=== PATIENT | female | born 2005 | race Caucasian/White ===

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

== ENCOUNTER 2025-05-13 11:30 | Outpatient (RCR) | payer OTHER, SELFPAY ==
--- NOTE | 2025-03-29 07:20 | HP.OTEVAL_ITS ---
Patient's Visit Information Visit Information Visit Information: JAMES RODRIGEZ is a 20 year old F, referred to Occupational Therapy by Dr. Zaid White MD, with a diagnosis of right RF proximal phalanx fx. Date of Evaluation: 03/27/25 Occupational Therapist: Kerry Burroughs, AMILCAR/Ranjit, CHT Subjective Subjective: This 20 year old female was seen for OT eval with dx of right MF closed displaced fx . pt states this happened and she underwent sx. pt states she was doing therapy at in [facility] while she was at school- she has now moved home and would like to cont. her therapy. 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 pt would like to gain more ROM and strength to return to her PLOF. ROM MP: right RF PIP: right -35/75 DIP: right -5/35 ROM Comments: pts left demo full ROM Strength [employer] Supervisor: right 35# left 65# Lateral Pinch: right 14# left 14# Tripod Pinch: right 16# left 16# Sensation Sensation Comments: denies Quick DASH-Disab of Arm,Shoulder& Hand Quick DASH Score: 35.0000 Goals Goal:: pt will demo a increase in right cement storage worker strength by 15# or greater to return to her ADLs at IND level by d.c Goal:: pt will demo right RF PIP ext to -5* or less to improve pts use of right hand with ADLS by d.c pt will demo righ RF PIP flexion to 90* or greater to improve pts ability to grasp objects by d/c Goal:: pt will report IND with typing with no noted compensation for lack of ROM by d/c Rehabilitation General Assessment: pt arrives 13 weeks s/p from ORIF of right RF. pt demo with limited ROM and weakness limiting pts IND with ADLs and IADLs. Pt would benefit from further skilled OT services 1-2x week for 6 weeks to return pt to her PLOF. Today therapist ed. pt on cont. of her reverse blocking to increase extension- along with use of relative motion ( or pencil) to improve PIP extension. pt demo understanding. Rehabilitation Potential: Good Anticipated Interventions Anticipated Interventions: A/AAROM/PROM, Strengthening, Triggerpoint Release, Modalities, Orthoses, Joint Protection/Energy Conservation, Ergonomic Education, Fine Motor Coord/Avinash, Education re assistive Equipment, Education re Diagnosis and Home Program Visit Plan Frequency: 1-2x /Week Duration: 6 Weeks TEXT: Thank you for the opportunity to evaluate your patient. For Medicare and Medicare HMO plans, please review the plan of care and approve it. It will need to be FAXED BACK to us at [phone] for Medicare purposes. Please let me know if there are questions or concerns regarding this plan of care. Physician S ignature: Date:
--- NOTE | 2025-07-04 09:48 | HP.OTDCNRP_ITS ---
Patient Information Patient Information: JAMES RODRIGEZ was seen in my office for initial evaluation on 03/27/25. The following Plan of Care was established for this patient: POC Established Initial Frequency: 1-2x /Week Initial Duration: 6 Weeks Plan: continue per POC for improved motion and strength Anticipated Interventions Anticipated Interventions: A/AAROM/PROM, Strengthening, Triggerpoint Release, Modalities, Orthoses, Joint Protection/Energy Conservation, Ergonomic Education, Fine Motor Coord/Avinash, Education re assistive Equipment, Education re Diag nosis and Home Program Last Seen Last Seen: This patient was last seen in our office 05/13/25. Pertinent comments regarding their Occupational therapy will appear below: No further apts scheduled at this time. Pt is d/c as she returned to [facility]. At this point I will be discontinuing this patient from occupational therapy. I would be happy to see this patient again in the future if found appropriate by the physician. Thank you! Kerry Burroughs, OTR/L, CHT
== END 2025-05-13 19:00 | disposition home or self-care (01) ==
LOC: OT 11:30
PROVIDERS: PCP Pediatrics; Referring Provider Orthopaedic Surgery; Visit Provider Orthopaedic Surgery
DX: S62.624D Displaced fracture of middle phalanx of right ring finger, subsequent encounter for fracture with routine healing (principal); Z09 Encounter for follow-up examination after completed treatment for conditions other than malignant neoplasm
CPT/HCPCS: 97110; 97140; 97166